=== PATIENT | male | born 1960 | race Caucasian/White ===

== ENCOUNTER 2020-10-20 06:15 | Day surgery (SDC) | payer OTHER ==
[2020-10-17 13:33] LABS: CORONAVIRUS COVID-19 NAA NEGATIVE (NEGATIVE)
[2020-10-20] MEDS ORDERED: Sodium Chloride 0.9% 1,000 ML IV SCH (07:00)
[2020-10-20] MEDS ORDERED: Propofol 200 MG/20 ML SDV ONE (07:26)
[2020-10-20] MEDS ORDERED: fentaNYL 100 MCG/2 ML SDV ONE (07:26)
[2020-10-20] MEDS ORDERED: Midazolam 1 MG/ML 2 ML SDV ONE (07:26)
--- NOTE | 2020-10-20 13:42 | OR ---
DATE OF PROCEDURE: 10/20/2020 SURGEON: Nghia Martinez MD PROCEDURE: Colonoscopy. FINDINGS: Normal colonoscopy. COMPLICATIONS: None. POWER GENERATION ENGINEER: None. PREOPERATIVE DIAGNOSIS: Screening colonoscopy. POSTOPERATIVE DIAGNOSIS: Screening colonoscopy. RISKS: Risks, benefits, alternatives, and limitations including, but not limited to, infection, bleeding, perforation, false positives and false negatives were explained to the patient. They wished to proceed. PROCEDURE IN DETAIL: The patient was placed in left lateral decubitus position. Digital rectal exam was performed without abnormality. Scope was introduced and advanced atraumatically to the ileocecal valve. A photo was taken of the appendiceal orifice. Scope was brought back to the ascending, transverse, descending colon, and retroflexed. No evidence of old or new blood. No masses. No polyps. No diverticulosis. The prep was marginal with approximately 85% to 90% of the luminal surface could be seen. No abnormalities on retroflexion. Greater than 8 minutes was spent removing the scope. The patient tolerated the procedure well. Nghia Martinez MD /[id number]
== END 2020-10-20 09:35 | disposition home or self-care (01) ==
LOC: JP.SDS 06:15
PROVIDERS: ATTEND Surgery
DX: Z12.11 Encounter for screening for malignant neoplasm of colon (principal); G47.33 Obstructive sleep apnea (adult) (pediatric); K21.9 Gastro-esophageal reflux disease without esophagitis; E66.9 Obesity, unspecified; Z20.822 Contact with and (suspected) exposure to COVID-19; Z68.35 Body mass index [BMI] 35.0-35.9, adult
CPT/HCPCS: 0241U; 45378; C9803; J2250; J2704; J3010; J7030